=== PATIENT | male | born 1965 | race Caucasian/White ===

== ENCOUNTER 2021-12-21 09:35 | Day surgery (SDC) | payer OTHER ==
[2021-12-15 12:32] VITALS: BMI 30.4
[2021-12-21] MEDS ORDERED: PROPOFOL 20 ML ONE ×6 (10:38)
[2021-12-21 11:45] VITALS: PULSE 76; TEMP 97.8
[2021-12-21 11:57] VITALS: BP 156/79
== END 2021-12-21 12:01 | disposition home or self-care (01) ==
LOC: FASU-ENDO 09:35
PROVIDERS: ATTEND Internal Medicine Gastroenterology
PROC: 0DBP8ZX Excision of Rectum, Via Natural or Artificial Opening Endoscopic, Diagnostic (ICD-10-PCS; 2021-12-21)
PROC: 0DBM8ZX Excision of Descending Colon, Via Natural or Artificial Opening Endoscopic, Diagnostic (ICD-10-PCS; principal; 2021-12-21 10:54)
DX: Z12.11 Encounter for screening for malignant neoplasm of colon (principal); D12.4 Benign neoplasm of descending colon; D12.8 Benign neoplasm of rectum; K64.0 First degree hemorrhoids; K64.8 Other hemorrhoids; K57.30 Diverticulosis of large intestine without perforation or abscess without bleeding
CPT/HCPCS: 88305-TC